=== PATIENT | female | born 1985 | race Caucasian/White ===

== ENCOUNTER 2018-02-11 00:25 | Emergency (ER) | payer OTHER ==
[~2018-02-11] VITALS: Ht 160 cm; Wt 82.3 kg
[2018-02-11] MEDS ORDERED: MEDROL DOSEPAK4 MG PO (01:58)
[2018-02-11 02:05] VITALS: BP 121/87
== END 2018-02-11 02:06 | disposition home or self-care (01) ==
LOC: EME 00:25
DX: L23.9 Allergic contact dermatitis, unspecified cause (principal)
CPT/HCPCS: 99281; 99283; J7512

== ENCOUNTER 2018-03-20 23:21 | Emergency (ER) | payer OTHER ==
[~2018-03-20] VITALS: Ht 160 cm; Wt 80.7 kg
[~2018-03-20 23:21] MED LIST: MEDROL DOSEPAK4 MG PO
[2018-03-21 00:57] VITALS: BP 126/88
== END 2018-03-21 00:57 | disposition home or self-care (01) ==
LOC: EME 23:21
DX: S61.011A Laceration without foreign body of right thumb without damage to nail, initial encounter (principal); W45.8XXA Other foreign body or object entering through skin, initial encounter; Y93.G1 Activity, food preparation and clean up; Z23 Encounter for immunization; F17.200 Nicotine dependence, unspecified, uncomplicated
CPT/HCPCS: 99281; 99284

== ENCOUNTER 2018-06-02 21:11 | Emergency (ER) | payer OTHER ==
[~2018-06-02] VITALS: Ht 160 cm; Wt 76.1 kg
[2018-06-02] MEDS ORDERED: AUGMENTIN875 MG PO (23:40)
[2018-06-02] MEDS ORDERED: VISTARIL50 MG PO (23:43)
[2018-06-02] MEDS ORDERED: NAPROSYN500 MG PO (23:43)
[2018-06-03 00:12] VITALS: BP 146/84
== END 2018-06-03 00:12 | disposition home or self-care (01) ==
LOC: EME 21:11
DX: L29.9 Pruritus, unspecified (principal); R21 Rash and other nonspecific skin eruption; K02.9 Dental caries, unspecified
CPT/HCPCS: 99281; 99284; Q0177